=== PATIENT | male | born 1960 | race African-American/Black ===

== ENCOUNTER 2016-10-01 02:37 | Emergency (ER) | payer OTHER ==
[2016-10-01 03:05] LABS: BASOPHIL 0.2 % (0-2); EOSINOPHIL 1.8 % (0-5); HCT 42.7 % (42.0-52.0); HGB 14.4 g/dl (13.2-18.0); LYMPHOCYTE 33.8 % (15-48); MCH 26.8 pg (25.0-31.0); MCHC 33.7 g/dL (32.0-36.0); MCV 79.5 fL (78.0-100.0); MONOCYTE 7.2 % (0-12); MPV 10.7 fL (6.0-9.5); PLT 297 K/uL (150-400); RBC 5.37 M/uL (4.70-6.00)
[2016-10-01 03:10] LABS: INR 0.85 (0.9-1.2); PROTHROMBIN TIME 11.3 SECONDS (11.7-14.0); PTT 29.2 SECONDS (23.2-31.4)
[2016-10-01 03:11] LABS: BILIRUBIN NEGATIVE (NEGATIVE); BLOOD NEGATIVE Ery/uL (NEGATIVE); CLARITY CLEAR (CLEAR); COLOR YELLOW (YELLOW); GLUCOSE (U) NORMAL (NORMAL); KETONE (U) NEGATIVE (NEGATIVE); LEUKOCYTES NEGATIVE Leu/uL (NEGATIVE); NITRITE NEGATIVE (NEGATIVE); PROTEIN NEGATIVE (NEGATIVE); UROBILINOGEN 0.2 mg/dL (0.2-1.0)
[2016-10-01 03:18] LABS: ALBUMIN 4.3 g/dL (3.5-5.0); BILIRUBIN - TOTAL 0.3 mg/dL (0.1-1.0); CREATININE 1.8 mg/dL (0.7-1.2); POTASSIUM 3.1 mmol/L (3.5-5.1); TOTAL PROTEIN 7.3 g/dL (6.4-8.3)
[2016-10-01 03:19] LABS: CKMB 1.23 ng/mL (0.97-4.94); TROPONIN T < 0.010 ng/mL
== END 2016-10-01 05:00 | disposition other institution (70) ==
LOC: FER 02:37
PROVIDERS: Emergency Medicine
DX: R07.89 Other chest pain (principal); I12.9 Hypertensive chronic kidney disease with stage 1 through stage 4 chronic kidney disease, or unspecified chronic kidney disease; N18.3 Chronic kidney disease, stage 3 (moderate); B30.9 Viral conjunctivitis, unspecified; K21.9 Gastro-esophageal reflux disease without esophagitis; H40.9 Unspecified glaucoma; Z87.891 Personal history of nicotine dependence; Z88.8 Allergy status to other drugs, medicaments and biological substances; Z79.82 Long term (current) use of aspirin; Z79.899 Other long term (current) drug therapy
CPT/HCPCS: 36415; 71010; 80053; 81003; 82550; 82553; 84484; 85025; 85610; 85730; 93005